=== PATIENT | female | born 1940 | race Caucasian/White ===

== ENCOUNTER → 2024-10-31 | Outpatient (CLI) | payer MEDICARE, SELFPAY ==
--- NOTE | 2024-10-31 16:35 | RAD_ITS ---
PROCEDURE: Right forearm radiographs REASON FOR EXAM: Pain, injury TECHNIQUE: Two views of the right forearm COMPARISON: None. FINDINGS: See impression RAD/Forearm 2 Views IMPRESSION: Negative for fracture or malalignment. No aggressive osseous lesion. Claude hendricks. Reading Location: [facility]
== END | disposition home or self-care (01) ==
PROVIDERS: Referring Provider Physician Assistant; Visit Provider Physician Assistant
DX: S59.919A Unspecified injury of unspecified forearm, initial encounter (principal)
CPT/HCPCS: 73090